=== PATIENT | female | born 2005 | race Caucasian/White ===

== ENCOUNTER 2023-11-05 20:24 | Emergency (ER) | payer MEDICAID, SELFPAY ==
[2023-11-05 20:25] VITALS: BP 154/106; PULSE 75; RESP 15; TEMP 36.3; O2SAT 97; BMI 42.2
--- NOTE | 2023-11-05 20:30 | EKG12_ITS ---
Test Reason : CP Blood Pressure : / mmHG Vent. Rate : 072 BPM Atrial Rate : 072 BPM P-R Int : 140 ms QRS Dur : 084 ms QT Int : 390 ms P-R-T Axes : 042 026 028 degrees QTc Int : 427 ms Normal sinus rhythm Nonspecific ST abnormality Abnormal ECG Confirmed by MARLEE VIVEROS, IMANI ([id number]), editor managing director DOROTHY CARRILLO ([id number]) on 11/11/2023 1:41:33 P M Referred By: JULIET/CHESTER Confirmed By:GABRIEL WHALEN MD
--- NOTE | 2023-11-05 21:16 | EDS_ITS ---
HPI History of Present Illness Chief Complaint: Chest Pain Informant: patient Narrative Narrative: Patient presents with anterior chest discomfort. Patient states that she does not have chest pain. But when she takes in a deep breath it just feels uncomfortable. Even deep breath does not cause pain. She feels like when she takes an of breath she needs to take in a deeper breath and cannot do it. This started a couple hours ago. She does not have nausea vo miting or diaphoresis. Pain is all in the front of her chest and does not radiate. She thought this might be a panic attack as she has had that before but now does not feel like it is the same. It is also sore to press on the area but she cannot think of any trauma or injury. Patient states her last trip was back in May where she went on a mission trip to [facility]. She does not and has not had any leg pain swelling personal or family history of DVT or PE. This patient is diabetic. She is type II diagnosed about a year ago. No cholesterol hypertension or smoking. Reportedly her mother had a heart attack when she was 26. It sounds like the mother had congenital heart disease her whole life and had multiple complications. But the patient states that her mother did have stents at the age of 32. [facility] Medical History DM II (diabetes mellitus, type II), controlled Allergy/AdvReac Type Severity Reaction Status Date / Time No Known Allergies Allergy Verified 11/05/23 20:29 Social History Smoking Status: Never smoker ROS ROS ED ROS Narrative A complete review of systems was performed and is negative except as documented in the history of present illness. Some specific details below. Constitutional: No recent fevers or chills. She felt fine until this started. EYE: No discharge, visual complaints, or pain. ENT: No difficulty swallowing. No swelling. No pain. No reflux symptoms. She states she did not swallow or eat anything that got stuck or was hot or spicy. CV: See history of present illness. Respiratory: See history of present illness. She denies being actually short of breath. GI: No abdominal pain. No nausea vomiting diarrhea. No blood in stool. : No frequency dysuria or hematuria. Musculoskeletal: No recent trauma. No pains. No swelling. Skin: No rash. Nondiaphoretic at any time. Neuro: No weakness or numbness. Endocrine: No polyuria or polydipsia. EXAM Physical Exam Narrative Exam Narrative: CONSTITUTIONAL: Patient is nontoxic in appearance. The patient looks comfortable. Work of breathing looks normal. HEENT: No notable trauma. Mucous membranes moist. No sinus tenderness. No indication of pain with swallowing. EYES: No conjunctival injection. No proptosis. NECK:No JVD. No stridor. CARDIOVASCULAR: Regular rate. Regular rhythm. No notable murmur. No JVD. No muffled tones. Pulses are normal x 4. RESPIRATORY: No respiratory distress. Breathing is unlabored. No wheezes. No rhonchi. No rales. No pain with a deep breath. She does have some reproducible chest wall tenderness but no rash or lesions or swelling. Saturation are normal at 97% on room air showing no hypoxia. GASTROINTESTINAL: Not distended. Bowel sounds are normal. No tenderness. No guarding. No rebound. No palpable mass. No bruit is heard. GENITOURINARY: No tenderness over the bladder. No CVA tenderness. MUSCULOSKELETAL: Atraumatic. No peripheral edema. No cord. No tenderness along the deep venous system. No asymmetry. No distended veins. NEUROLOGICAL: Patient is alert and appropriate. No focal deficit noted. SKIN: No noted rashes. No diaphoresis. PSYCHIATRIC: Patient is calm. Mood is appropriate. Const Vital Signs: 11/05/23 20:25 11/05/23 21:17 11/05/23 21:17 Temperature 97.3 F L Temperature Source Temporal Pulse Rate 75 Respiratory Rate 15 Respiratory Effort Normal Non-Labored Blood Pressure 154/106 H Blood Pressure Mean 122 Pulse Ox 97 Oxygen Delivery Method Room Air Room Air Heart Score History: Slightly/Non-Suspicious ECG: Normal Age: </= 45 years Risk Factors: >/= 3 Risk Factors or History of CAD Troponin: </= Normal Limit Score: 2 MDM MDM MDM Narrative Medical decision making narrative: My independent interpretation of the patient's chest x-ray shows no acute process. Images are somewhat limited due to body habitus. For the read shows no process but low lung volumes do limit exam. Patient CBC shows mild elevation of white count at 13.6 which is nonspecific. Patient's electrolytes are overall normal other than elevated glucose at 225. She is on medication for diabetes. Troponin is negative at 4. D-dimer is negative at 0.27. Patient is also PERC negative. But because she had discomfort with breathing and she has had some travel we did pursue a more comprehensive workup. I do not think she needs a CT scan of the chest. This patient has a very strong family history of heart disease. Her mother apparently had a heart attack at 26 and did have stents in her young 30s. Since this patient has obesity and diabetes with family history we will do do a delta troponin as she came in about 1-1/2 to 2 hours after the onset of her symptoms. As long as this is negative I still think she can go home and follow-up. She is feeling better. Lab Data Attestation: I reviewed the patient's lab results. Labs: Laboratory Results - last 24 hr 11/05/23 11/05/23 21:20 21:24 WBC 13.6 H RBC 4.85 Hgb 12.1 Hct 38.1 MCV 78.6 L MCH 24.9 L MCHC 31.8 L RDW Std Deviation 38.3 RDW Coeff of Malena 13.5 Plt Count 325 MPV 10.0 Immature Gran % (Auto) 1.100 H Neut % (Auto) 61.9 Lymph % (Auto) 24.7 Moca % (Auto) 7.8 Eos % (Auto) 3.8 Baso % (Auto) 0.7 Absolute Neuts (auto) 8.5 H Absolute Lymphs (auto) 3.37 Nucleated RBC % 0 D-Dimer Quant (PE/DVT) 0.27 Sodium 137 Potassium 3.8 Chloride 106 Carbon Dioxide 24.0 Anion Gap 7 BUN 12 Creatinine 0.70 Estim Creat Clear Calc 115.36 Est GFR (MDRD) Af Amer 136 Est GFR (MDRD) Non-Af 113 BUN/Creatinine Ratio 17.1 Glucose 225 H Calcium 9.4 Troponin I High Sens 4 Radiography Diagnostic Testing: Clinical Impression(s) from Imaging Studies Chest X-Ray 11/05/23 21:20 IMPRESSION: 1. Low lung volumes limit the exam. No consolidations. 2. No acute cardiopulmonary abnormality. Electronically Signed: Rigo Singh MD at 21:38 EST , EKG Initial EKG: Comments: My independent interpretation of the patient's EKG shows normal sinus rhythm with a rate at 72. No ectopy. No acute ST elevation or depression but there is some mild nonspecific changes. WA interval, QRS duration and QTc are normal. This EKG was done while she was having symptoms. Discharge Plan Triage Chief Complaint: Chest Pain ED Provider: Blas Morales Dx/Rx/DC Orders Clinical Impression: Hx of type 2 diabetes mellitus, Family history of coronary artery disease, Chest pain Instructions: ED Chest Pain, Uncertain Cause Primary Care Provider: Care Physician,No Primary Referrals: Keara Kline MD [Med Staff - Professional Model] - 3-5 Days Care Physician,No Primary [Primary Care Provider] - Disposition Disposition: Home, Self Care
--- NOTE | 2023-11-05 21:20 | RAD_ITS ---
EXAM: XR CHEST, 1 VIEW CLINICAL INDICATION: chest pain TECHNIQUE: Frontal view of the chest. COMPARISON: No relevant prior studies available. FINDINGS: LUNGS AND PLEURAL SPACES: Low lung volumes limit the exam. No consolidations. No pneumothorax. No effusion. HEART: Unremarkable. Cardiac silhouette not enlarged. MEDIASTINUM: Central airways and mediastinal contour are unremarkable. BONES/JOINTS: Unremarkable. No acute fracture. SOFT TISSUES: Unremarkable. RAD/Chest 1 View (Portable) IMPRESSION: 1. Low lung volumes limit the exam. No consolidations. 2. No acute cardiopulmonary abnormality. Electronically Signed: Rigo Singh MD at 21:38 EST ,
[2023-11-05 21:26] LABS: Absolute Lymphocyte Count 3.37 X10^3/uL (0.83-4.51); Absolute Neutrophil Count 8.5 X10^3/uL (2.0-7.7); Basophil# 0.09 X10^3/uL; Basophil% 0.7 % (0-1); Eosinophil# 0.52 X10^3/uL; Eosinophils% 3.8 % (0-5); Hematocrit 38.1 % (37-47); Hemoglobin 12.1 g/dL (12.0-15.0); Lymphocyte # 3.37 X10^3/ul (0.83-4.51); Lymphocyte % 24.7 % (19-41); Mean Corp Hgb Conc 31.8 g/dL (32-36); Mean Corpuscular Hgb 24.9 pg (27.0-32.0); Mean Corpuscular Volume 78.6 fL (81-99); Monocyte# 1.06 X10^3/uL; Monocyte% 7.8 % (0-10); NRBC Flagged by Analyzer 0 % (0-5); Neutrophil # 8.45 X10^3/uL (2.7-7.7); Neutrophil % 61.9 % (47-70); Platelet Count 325 K/mm3 (150-450); RBC Distribution Width CV 13.5 % (11.6-14.6); RBC Distribution Width SD 38.3 fl (35.1-43.9); Red Blood Count 4.85 M/mm3 (4.2-5.4); White Blood Count 13.6 K/mm3 (4.4-11.0)
[2023-11-05 21:30] VITALS: BP 153/79; PULSE 72; RESP 16; O2SAT 97
[2023-11-05 21:49] LABS: D-Dimer Quantitative (DVT/PE) 0.27 FEU/ug/m (0.27-0.49)
[2023-11-05 21:53] LABS: Anion Gap 7 (5-15); BUN 12 mg/dL (7-18); BUN/Creat Ratio 17.1 RATIO (10-20); Calcium,Total 9.4 mg/dL (8.5-10.1); Chloride 106 mmol/L (98-107); EST Glomerular Filtration Rate 113 mL/min (>60); Est Glom Filt Rate - Afr Amer 136 mL/min (>60); Estimated Creatinine Clearance 115.36 ml/min; Glucose 225 mg/dL (74-106); Potassium 3.8 mmol/L (3.5-5.1); Sodium Level 137 mmol/L (136-145); Troponin-I HS (w/2H Reflex) 4 pg/mL (3.0-54.0)
[2023-11-05 22:00] VITALS: BP 145/73; PULSE 71; RESP 14; O2SAT 98
[2023-11-05 23:00] VITALS: BP 152/89; PULSE 76; RESP 17; O2SAT 97
[2023-11-05 23:23] LABS: Reflex Troponin-HS? (from REC) Y
[2023-11-05 23:55] LABS: Troponin-I HS 6 pg/mL (3.0-54.0)
[2023-11-06 00:18] VITALS: RESP 14
== END 2023-11-06 00:19 | disposition home or self-care (01) ==
PROVIDERS: Emergency Provider Emergency Medicine; Visit Provider Emergency Medicine
DX: R07.9 Chest pain, unspecified (principal); E11.9 Type 2 diabetes mellitus without complications; R94.31 Abnormal electrocardiogram [ECG] [EKG]; Z82.49 Family history of ischemic heart disease and other diseases of the circulatory system
CPT/HCPCS: 71045; 80048; 84484; 85025; 85379; 93005; 99284; A4216